=== PATIENT | male | born 1960 | race Two or more races ===

== ENCOUNTER 2024-03-04 07:20 | Outpatient (CLI) | payer OTHER ==
[~2024-03-04 07:20] MED LIST: CIPRO500 MG PO; SYNTHROID75 MCG
== END 2024-03-04 07:28 | disposition home or self-care (01) ==
LOC: MRI 07:20
PROVIDERS: ATTEND Internal Medicine Gastroenterology
DX: K50.90 Crohn's disease, unspecified, without complications (principal)
CPT/HCPCS: 74181